=== PATIENT | female | born 1955 | race Caucasian/White ===

== ENCOUNTER 2025-01-13 11:42 | Inpatient (IN) | payer MEDICARE ==
[~2025-01-13] VITALS: Ht 157.5 cm; Wt 100.7 kg
--- NOTE | 2025-01-13 14:30 | NUR ---
pt transfer from [facility] via ambulance left bundle branch block acute pulmonary edema heart block pt awake alert orient x4 denies chest pain room orientation completed
--- NOTE | 2025-01-13 14:48 | NUR ---
in report nurse from [facility] stated pt positive for covid medical recrd shows negative pt re-tested for covid on admission
[2025-01-13] MEDS ORDERED: FERR240T10 PO (15:14)
[2025-01-13] MEDS ORDERED: ZOLPidem TARTrate 5 MG TAB PO PRN (15:30)
[2025-01-13] MEDS ORDERED: DiphenhydrAMINE HCL 50 MG/ML VIAL IV PRN (15:30)
[2025-01-13] MEDS ORDERED: guaiFENesin-DM 200/20MG 10ML PO PRN (15:30)
[2025-01-13] MEDS ORDERED: PoTASSium chloRIDE 20MEQ ER 20 MEQ ERTAB PO PRN ×2 (15:30)
[2025-01-13] MEDS ORDERED: LACTULOSE 20 GM/30 ML UDCUP PO PRN (15:30)
[2025-01-13] MEDS ORDERED: hydrALAZine 20MG/ML VIAL IV PRN (15:30)
[2025-01-13] MEDS ORDERED: GLUCAGON 1MG KIT 1 MG ML IM PRN (15:30)
[2025-01-13] MEDS ORDERED: NITROGLYCERIN 0.4 MG SL TAB SL PRN (15:30)
[2025-01-13] MEDS ORDERED: FAMOTIDINE 20MG VIAL IV PRN (15:30)
[2025-01-13] MEDS ORDERED: MAGNESIUM 2GM PREMIX 50ML 50 ML IV PRN (15:30)
[2025-01-13] MEDS ORDERED: PoTASSium chloRIDE 20MEQ/100ML 100 ML IV PRN (15:30)
[2025-01-13] MEDS ORDERED: ketOROlac 15MG/ML VIAL (15MG/ML) IV PRN (15:30)
[2025-01-13] MEDS ORDERED: PoTASSium chloRIDE 10MEQ/100ML 100 ML IV PRN (15:30)
[2025-01-13] MEDS ORDERED: oxyCODONE/aceTAMIN 5/325MG TAB PO PRN (15:30)
[2025-01-13] MEDS ORDERED: DEXTROSE 50%-WATER 50 ML DISP.SYRIN IV PRN (15:30)
[2025-01-13] MEDS ORDERED: morPHINE 2 MG SYG IVP PRN (15:30)
[2025-01-13] MEDS ORDERED: PoTASSium chl 10% ELIXIR 20MEQ 20 MEQ/15 ML UDCUP PO PRN ×2 (15:30)
[2025-01-13] MEDS ORDERED: acetaMINOPHEN 325 MG TAB PO PRN ×3 (15:30)
[2025-01-13] MEDS ORDERED: MAG/ALUM/SIMETH 30 ML UDCUP PO PRN (15:30)
[2025-01-13] MEDS ORDERED: ondanSETRON 4MG INJ IV PRN (15:30)
--- NOTE | 2025-01-13 15:31 | HP ---
[facility] HISTORY AND PHYSICAL Date of Service: Jan 13, 2025 Time of Service: 15:20 PCP:Dr Becca Live from [facility] in [facility] Admitting: Dr Hinton Allergies: No Allergy Information Available, No Known Drug Allergies HISTORY OF PRESENT ILLNESS: [Patient is 69 years old female, winter [place] from [facility] with a past medical history of iron-deficiency anemia, cardiac murmur (aortic stenosis), obesity,, who came to emergency department [facility], with a complaint of dyspnea on exertion for the past 3 to 4 weeks and paroxysmal nocturnal dyspnea as well as new onset CHF by chest x-ray in the emergency department. She was found to be in a third-degree AV block in emergency department and Cardiology was consulted. She reports have block dyspnea on exertion without associated chest pain or dizziness. Patient had two episodes of PND in the last week waking up 3 to 4 times with the dyspnea. Patient denies any chest discomfort, syncope, near syncope or dizziness. Patient denies any history of bradycardia. Patient stated that at home she takes only iron for her iron-deficiency anemia. Patient was transferred per Dr. Mirza from [facility] to [facility] for further evaluation of pacemaker with , and to consult for further evaluation of the complete heart block and CHF. At this moment we do not have any labs or results. Patient will be admitted under hospitalist care for further evaluation. We will continue to monitor patient. ] REVIEW OF SYSTEMS CONSTITUTIONAL: Denies fevers, chills, or night sweats. No unintentional weight loss reported. NEUROLOGICAL: Denies headache, amaurosis fugax, motor weakness, sensory deficit, vertigo/spinning sensation, gait abnormalities, or tremors. ENT: No hearing loss, otalgia, otorrhea, rhinitis, rhinorrhea, hoarseness, or sore throat. CARDIOVASCULAR: Denies any exertional angina, dyspnea on exertion, orthopnea, paroxysmal nocturnal dyspnea, palpitations, life-threatening arrhythmias, claudication. PULMONARY: Denies any , cough, phlegm/sputum, hemoptysis, pleuritic chest pain. Shortness of breaths on exertion SLEEP: Denies morning headaches, daytime somnolence or napping. Denies difficul ty falling asleep, staying asleep, waking from sleep. Denies knowledge of snoring. GASTROINTESTINAL: Denies any type of dysphagia to either liquids or solids. Denies nausea, vomiting, pyrosis, early satiety, abdominal pain, diarrhea, constipation, or changes in stool consistency or caliber. Denies coffee-ground emesis, hematemesis, hematochezia, or melanotic stools. GENITOURINARY: Denies frequency, urgency, nocturia, hematuria or incontinence (Storage/Irritative symptoms.) Low urinary stream, straining to void, urinary intermittency or hesitancy, splitting of the voiding stream, terminal dribbling. ENDOCRINOLOGIC: Denies polyuria, polydipsia, polyphagia or heat/cold intole rances. HEMATOLOGIC: Denies thrombophilia/previous clots, or coagulopathy/bleeding disorders. ONCOLOGIC: Denies personal history of malignancy. DERMATOLOGIC: Denies rashes or pruritus. PSYCHIATRIC: Denies any suicidal or homicidal ideation. Denies hallucinations. PAST MEDICAL HISTORY: [ Iron-deficiency anemia, cardiac murmur, obesity, colonic polyps, possible sleep apnea] PAST SURGICAL HISTORY: [ Cholecystectomy, right eye blepharoplasty, face-lift 2022, right ovaria les ion exertionn excision, s/p polypectomy three years ago] PAST SOCIAL HISTORY: [ Patient denies smoking and reports rare social alcohol consumption only. Patient denies any drug illicit ] FAMILY HISTORY: [ Patient is winter [place] from [place] lives with family. Patient is independent ] Coded Allergies: No Known Allergies (Unverified Allergy, Unknown, 01/13/25) PHYSICAL EXAM GENERAL APPEARANCE: The patient is awake, alert, and oriented, in no acute cardiopulmonary distress. NEUROLOGICAL: Cranial nerves II-XII grossly intact. Motor is 5/5 in bilateral upper and lower extremities proximal to distal. No sensory deficits. HEENT: Face is symmetric. Pupils are equal and reactive. Extraocular movements are intact. NECK: Supple. No JVD. No thyromegaly. No submental, submandibular, pre- /postauricular, occipital or supraclavicular lymphadenopathy. CHEST: Normal chest expansion. No Telemetry. LUNGS: Absence of any rales, rhonchi or any wheezing. CARDIOVASCULAR: Regular. S1 and S2 normal. No appreciable rubs, murmurs or gallops. ABDOMEN: Soft, nontender, and nondistended. There is no rebound, voluntary g uarding, or rigidity. : Deferred. No Lynch. EXTREMITIES: Non-edematous and not cyanotic. No clubbing. Good capillary refill. SKIN: No skin breakdown. LABS: Current Medications Medications (Trade) Dose Ordered Sig/Dk Route PRN Reason Start Time Stop Time Status Last Admin Dose Admin Dextrose (D50w) 50 ml AD PRN IV HYPOGLYCEMIA PROTOCOL 01/13/25 15:30 02/12/25 15:29 Glucagon (Glucagon 1mg Kit) 1 mg AD PRN IM HYPOGLYCEMIA PROTOCOL 01/13/25 15:30 02/12/25 15:29 Insulin Human Regular (humuLIN R 100 UNIT/ML 3ML) INSULIN SLIDING SCAL... ACHS SQ 01/13/25 16:30 02/12/25 16:29 Magnesium Sulfate 50 ml @ 0 mls/hr PROTOCOL PRN IV other 01/13/25 15:30 02/12/25 15:29 Potassium Chloride 100 ml @ 100 mls/hr AD PRN IV POTASSIUM PROTOCOL 01/13/25 15:30 02/12/25 15:29 Potassium Chloride 100 ml @ 100 mls/hr AD PRN IV POTASSIUM PROTOCOL 01/13/25 15:30 02/12/25 15:29 Potassium Chloride (K-Dur/Klor-Con 20meq) 10 meq AD PRN PO POTASSIUM PROTOCOL 01/13/25 15:30 02/12/25 15:29 Potassium Chloride (K-Dur/Klor-Con 20meq) 20 meq AD PRN PO POTASSIUM PROTOCOL 01/13/25 15:30 02/12/25 15:29 Potassium Chloride (KCl 10% Elixir 20meq/15ml) 10 meq AD PRN PO POTASSIUM PROTOCOL 01/13/25 15:30 02/12/25 15:29 Potassium Chloride (KCl 10% Elixir 20meq/15ml) 20 meq AD PRN PO POTASSIUM PROTOCOL 01/13/25 15:30 02/12/25 15:29 DIAGNOSTICS / RADIOLOGY: [ ] ASSESSMENT: [ Complete heart block POA New onset CHF exacerbation POA Systolic and diastolic CHF POA Left bundle branch block POA Acute pulmonary edema POA Aortic stenosis POA Cardiac murmur POA Dyspnea on exertion and paroxysmal nocturnal dyspnea POA Symptomatic bradycardia needing pacemaker POA Obesity Iron-deficiency anemia Undiagnosed obstructive sleep apnea POA History of colonic polyps s/p polypectomy three years ago Right eye blepharoplasty s/p cholecystectomy History of face lift 2022 History of right ovarian lesion Rare social alcohol consumption POA ] PLAN: [ Admit to: PCCU Consults: Estate Agent, Antibiotics: None Tests: 2D echo, chest x-ray NEURO: Minimize central acting medications as possible. Fall Precautions. Well lighted room through the day and minimize interruptions through the night to prevent acute delirium. PULMONARY: Chest x-ray pending Supplemental 02 as needed BiPAP as necessary, for respiratory distress Titrate Fio2 to keep Spo2 > or = 90% DuoNebs and CPT as needed IS hourly while awake for pulmonary hygiene Out of bed to chair as tolerated VAP Bundle Maintain aspiration precautions at all times CARDIOVASCULAR: 2D echo pending Follow hemodynamics. Vital signs per facility protocol GI & NUTRITION: Continue nutritional support Aspirations precautions Prokinetic agents and laxatives as needed KIDNEYS & ELECTROLYTES: Strict monitoring of intake and output Daily weights Avoid nephrotoxic agents Monitor electrolytes and replace as needed Goal urine output of 30mL/hr or 0.5mL/kg/hr Medications to be dosed according to renal function. Avoid contrast if possible ENDOCRINE: Maintain blood glucose between 100-180 at all times. Insulin sliding scale for blood glucose management Hypoglycemia and hyperglycemia protocol in place INFECTIOUS DISEASE: Trend temperature, WBC and procalcitonin level Follow cultures, deescalate antibiotics as soon as possible. Panculture if new onset fever HEMATOLOGY & COAGULATION: Monitor H&H. Keep Hgb > 7 Transfuse 1 unit of PRBC for Hgb < 7 Transfuse 1 pack of platelets of platelets < 20, 000 Watch for any signs and symptoms of bleeding SKIN: Pressure ulcer prevention per facility protocol Specialty mattress as needed Treatment plan discussed with patient and family at the bedside Medications to be reconciled once obtained by patient and/or family and available to be reconciled in computer p.r.n. medication for pain nausea and vomiting Questions were answered We will continue to monitor the patient closely Code Machine Operator for disposition Rehab: PT/OT GI: PPI DVT: SCD's Code Status: Full Resuscitation Disposition: TBD Prognosis: Guarded ] ADVANCED CARE PLANNING 1. Which of the following were discussed? Hospice Care - Yes / No Therapeutic options - Yes / No Advance Directives - Yes / No Other discussions - 2. Discussed with who? Patient 3. Voluntary nature of this service was explained to the patient? Yes / No 4. Amount of time spent - ___ more than 35 minutes ____ 5. Reviewed by Physician? (if this service was performed by NPP) Yes / No Patient seen and examined by me. Agree with note by LEAN SPECIALIST SEE ADDITIONAL ORDERS PER CHART DISCUSSED WITH NURSING STAFF ELVIA BRADSHAW APRN Jan 13, 2025 15:31
[2025-01-13 15:34] LABS: BASOPHILS # (AUTO) 0.02 K/uL (0.00-0.20); BASOPHILS % (AUTO) 0.3 % (0.0-5.0); EOSINOPHILS # (AUTO) 0.18 K/uL (0.00-0.70); EOSINOPHILS % (AUTO) 3.1 % (0.0-8.0); HEMATOCRIT 38.2 % (36-48); IMMATURE GRANULOCYTE ABSOLUTE 0.02 K/uL (0-1); LYMPHOCYTES # (AUTO) 0.9 K/uL (1.0-4.8); LYMPHOCYTES % (AUTO) 16.2 % (21.0-51.0); MEAN CORPUSCULAR HEMOGLOBIN 27.1 pg (27.0-33.0); MEAN CORPUSCULAR HGB CONC 30.9 g/dL (32.0-36.0); MEAN CORPUSCULAR VOLUME 87.6 fL (79-99); MONOCYTES # (AUTO) 0.6 K/uL (0.1-1.0); MONOCYTES % (AUTO) 10.1 % (3.0-13.0); NEUTROPHILS # (AUTO) 4.1 K/uL (1.8-7.7); PLATELET COUNT (AUTO) 211 K/uL (130-400); RED BLOOD CELL COUNT(AUTO) 4.36 MIL/uL (4.00-5.50); WHITE BLOOD COUNT (AUTO) 5.8 K/uL (4.8-10.8)
[2025-01-13 15:39] VITALS: O2SAT 96
[2025-01-13 15:46] LABS: SARS-CoV-2, RNA, NAAT POSITIVE SARS CoV-2 (NEGATIVE)
[2025-01-13 15:52] LABS: ALBUMIN 3.2 g/dL (3.5-5.0); BILIRUBIN,TOTAL 1.4 mg/dL (0.2-1.0); CREATININE 0.8 mg/dL (0.5-1.0); POTASSIUM 3.7 mmol/L (3.5-5.1); TOTAL PROTEIN, SERUM 6.3 g/dL (6.0-8.3)
[2025-01-13 15:55] LABS: B-TYPE NATRIURETIC PEPTIDE 921 pg/mL (0-100)
[2025-01-13 16:30] VITALS: BP 148/76; PULSE 52; RESP 18; TEMP 98.2
[2025-01-13] MEDS: INSULIN humuLIN R 100 UNIT/ML 3ML SQ SCH (16:30)
[2025-01-13] MEDS: DOXYCYCLINE 100MG+NS 250ML 250 ML IV SCH (19:32)
[2025-01-13 19:52] VITALS: BP 165/73; PULSE 53; RESP 18; TEMP 98.4
[2025-01-13 20:00] VITALS: O2SAT 94
[2025-01-13] MEDS: FAMOTIDINE 20MG VIAL IV SCH (20:16)
[2025-01-13 22:10] LABS: APPEARANCE,URINE CLEAR (CLEAR); BILIRUBIN,URINE NEGATIVE (NEGATIVE); COLOR,URINE YELLOW (YELLOW); GLUCOSE, URINE (UA) NEGATIVE (NEGATIVE); KETONES,URINE 20 mg/dL (NEGATIVE); LEUKOCYTE ESTERASE ,URINE 75 Leu/uL (NEGATIVE); MUCUS,URINE RARE LPF (None Seen); NITRATE,URINE NEGATIVE (NEGATIVE); OCCULT BLOOD,URINE NEGATIVE (NEGATIVE); PH,URINE 7.5 (5.0-8.0); PROTEIN,URINE 10 mg/dL (NEGATIVE); UROBILINOGEN,URINE 0.2 mg/dL (0.2-1.0)
[2025-01-13 23:50] VITALS: BP_SYST 104; BP_SYST 155; BP_DIAS 71; BP_DIAS 79; PULSE 75; PULSE 91; RESP 18; TEMP 98.4
[2025-01-14] VITALS (13 sets, daily range): BP systolic 140–161; BP diastolic 56–96; PULSE 43–88; RESP 18–21; TEMP 97.7–98.6; O2SAT 92–96
[2025-01-14 04:21] LABS: BASOPHILS # (AUTO) 0.02 K/uL (0.00-0.20); BASOPHILS % (AUTO) 0.4 % (0.0-5.0); EOSINOPHILS # (AUTO) 0.17 K/uL (0.00-0.70); HEMATOCRIT 38.3 % (36-48); IMMATURE GRANULOCYTE ABSOLUTE 0.02 K/uL (0-1); LYMPHOCYTES # (AUTO) 0.8 K/uL (1.0-4.8); LYMPHOCYTES % (AUTO) 14.4 % (21.0-51.0); MEAN CORPUSCULAR HEMOGLOBIN 26.8 pg (27.0-33.0); MEAN CORPUSCULAR HGB CONC 30.5 g/dL (32.0-36.0); MEAN CORPUSCULAR VOLUME 87.6 fL (79-99); MONOCYTES # (AUTO) 0.6 K/uL (0.1-1.0); NEUTROPHILS % (AUTO) 70.8 % (40.0-77.0); PLATELET COUNT (AUTO) 199 K/uL (130-400); RED BLOOD CELL COUNT(AUTO) 4.37 MIL/uL (4.00-5.50); WHITE BLOOD COUNT (AUTO) 5.6 K/uL (4.8-10.8)
[2025-01-14 04:37] LABS: INR 1.07 (0.85-1.15); PROTHROMBIN TIME 11.3 SEC (9.6-11.6)
[2025-01-14 04:39] LABS: PARTIAL THROMBOPLASTIN TIME 28.5 SEC (26.3-35.5)
[2025-01-14 04:51] LABS: ALANINE AMINOTRANSFERASE 21 U/L (12-78); AMMONIA < 10 umol/L (11-32); ASPARTATE AMINOTRANSFERASE 22 U/L (10-37); BILIRUBIN,DIRECT 0.3 mg/dL (0.0-0.3); BILIRUBIN,TOTAL 1.3 mg/dL (0.2-1.0); CARBON DIOXIDE 32 mmol/L (21-32); CHLORIDE 103 mmol/L (101-111); CREATINE KINASE, TOTAL 60 U/L (21-232); CREATININE 0.8 mg/dL (0.5-1.0); GLOMERULAR FILTR. RATE CALC 79 mL/min (>90); GLUCOSE,RANDOM 103 mg/dL (70-105); POTASSIUM 4.5 mmol/L (3.5-5.1); SODIUM SERUM 136 mmol/L (136-145); TOTAL PROTEIN, SERUM 6.1 g/dL (6.0-8.3); UREA NITROGEN, BLOOD 9 mg/dL (7-18)
[2025-01-14] MEDS ORDERED: PoTASSium chloRIDE 10MEQ SR 10 MEQ/TAB TAB.SR.24H PO PRN (07:30)
[2025-01-14] MEDS: CEFTRIAXONE 2GM VIAL IVPB SCH (09:00)
--- NOTE | 2025-01-14 09:55 | NUR ---
RAD V/Q @ 0954HRS VERONICA REBOLLEDO WAS NOTIFIED; V/Q SCAN CAN NOT BE PERFORMED DUE TO PT'S COVID (+) STATUS. DG
--- NOTE | 2025-01-14 10:38 | PN ---
[facility] CARDIOLOGY PROGRESS NOTE Date Patient Seen: Jan 14, 2025 Time of Visit: 10:36 Problem List: [facility] COV19 ELEVATED TROPONIN Interval History: Seen in follow up after transfer [place] [facility] Consultation by Dr Sandro Mirza dated 01/13/25. Patient's BP is 150/56, HR 46bpm in [facility], O2 saturations 95% on room air. Laboratory: [ ] Hematology Labs: Test 01/14/25 03:57 01/13/25 15:26 Range/Units White Blood Count 5.6 4.8-10.8 K/uL Red Blood Count 4.37 4.00-5.50 MIL/uL Hemoglobin 11.7 L 12.0-16.0 g/dL Hematocrit 38.3 36-48 % Mean Corpuscular Volume 87.6 79-99 fL Mean Corpuscular Hemoglobin 26.8 L 27.0-33.0 pg Mean Corpuscular Hemoglobin Concent 30.5 L 32.0-36.0 g/dL Red Cell Distribution Width 22.0 H 11.0-15.5 % Platelet Count 199 130-400 K/uL Mean Platelet Volume 9.4 7.5-10.5 fL Immature Granulocyte % (Auto) 0.4 0-1 % Neutrophils (%) (Auto) 70.8 40.0-77.0 % Lymphocytes (%) (Auto) 14.4 L 21.0-51.0 % Monocytes (%) (Auto) 11.0 3.0-13.0 % Eosinophils (%) (Auto) 3.0 0.0-8.0 % Basophils (%) (Auto) 0.4 0.0-5.0 % Neutrophils # (Auto) 4.0 1.8-7.7 K/uL Lymphocytes # (Auto) 0.8 L 1.0-4.8 K/uL Monocytes # (Auto) 0.6 0.1-1.0 K/uL Eosinophils # (Auto) 0.17 0.00-0.70 K/uL Basophils # (Auto) 0.02 0.00-0.20 K/uL Absolute Immature Granulocyte (auto 0.02 0-1 K/uL Nucleated Red Blood Cells 0.0 0.0-0.19 % Red Blood Cell Morphology See comments Chemistry Labs: Test 01/14/25 03:57 01/13/25 20:30 01/13/25 15:26 Range/Units Sodium Level 136 136-145 mmol/L Potassium Level 4.5 3.5-5.1 mmol/L Chloride Level 103 101-111 mmol/L Carbon Dioxide Level 32 21-32 mmol/L Blood Urea Nitrogen 9 7-18 mg/dL Creatinine 0.8 0.5-1.0 mg/dL Glomerular Filtration Rate Calc 79 >90 mL/min Random Glucose 103 70-105 mg/dL Lactic Acid Level 1.4 0.8-2.5 mmol/L Total Calcium 8.7 8.5-10.1 mg/dL Magnesium Level 2.10 1.80-2.40 mg/dL Total Bilirubin 1.3 H 0.2-1.0 mg/dL Direct Bilirubin 0.3 0.0-0.3 mg/dL Aspartate Amino Transf (AST/SGOT) 22 10-37 U/L Alanine Aminotransferase (ALT/SGPT) 21 12-78 U/L Alkaline Phosphatase 68 50-136 U/L Ammonia < 10 L 11-32 umol/L Total Creatine Kinase 60 21-232 U/L Troponin I High Sensitivity 93.5 *H 4-50 ng/L B-Type Natriuretic Peptide 760 H 0-100 pg/mL Total Protein 6.1 6.0-8.3 g/dL Albumin 3.0 L 3.5-5.0 g/dL Procalcitonin < 0.05 L 0.05-0.5 ng/mL Whole Blood Glucose 83 70-110 MG/DL Hemoglobin A1c 5.0 4.0-6.0 % Estimated Average Glucose (eAG) 97 70-126 mg/dL Coagulation Labs: Test 01/14/25 03:57 01/13/25 15:26 Range/Units Prothrombin Time 11.3 9.6-11.6 SEC Prothromb Time International Ratio 1.07 0.85-1.15 Activated Partial Thromboplast Time 28.5 26.3-35.5 SEC D-Dimer Quantitative (PE/DVT) 897 *H 0-500 ng/mL Impression and Plan: Complete heart block COV19 positive Elevated troponin Cardiac murmur Hypertension Transferred due to [facility] with need for PPM. Patient positive for COV19, underlying aortic stenosis murmur pending e chocardiogram to assess severity prior to PPM ANGELLA DOMINIQUE DO Jan 14, 2025 10:38
--- NOTE | 2025-01-14 11:00 | NUR ---
Order received for PT eval. Spoke to nurse, Yen, who stated patient is + Covid. Laboratory results noted high D dimer and troponin levels pending VQ scan ?cardiac issues. PT team to follow
--- NOTE | 2025-01-14 11:42 | PN ---
[facility] PROGRESS NOTE Date of Service: Jan 14, 2025 Time of Service: 11:[address] Guajardo SUBJECTIVE: [ 01/13 Patient is 69 years old female, [place] from [facility] with a past medical history of iron-deficiency anemia, cardiac murmur (aortic stenosis), obesity,, who came to emergency department [place], with a complaint of dyspnea on exertion for the past 3 to 4 weeks and paroxysmal nocturnal dyspnea as well as new onset CHF by chest x-ray in the emergency department. She was found to be in a third-degree AV block in emergency department and Cardiology was consulted. She reports have block dyspnea on exertion without associated chest pain or dizziness. Patient had two episodes of PND in the last week waking up 3 to 4 times with the dyspnea. Patient denies any chest discomfort, syncope, near syncope or dizziness. Patient denies any history of bradycardia. Patient stated that at home she takes only iron for her iron-deficiency anemia. Patient was transferred per Dr. Mirza from [facility] to [facility] for further evaluation of pacemaker with , and to consult for further evaluation of the complete heart block and CHF. At this moment we do not have any labs or results. 01/14 patient was seen by nurse practitioner and physician during rounding in room 201 comfortably lying in the bed. Patient stated that at this moment she has been kept NPO since she might be having a pacemaker placement today by . HEAD USHER had a chance to talk in person with string top sealer, and there is a big possibility that patient will be undergoing a pacemaker placement today in the afternoon. Patient was tested positive for COVID and was placed on doxycycline IV. 2D echo was done pending final reading. V/Q scan unable to be performed due to patient being COVID positive. Chest x-ray performed no results yet. Patient was also evaluated by the deicer inspector electric no new orders at this moment. We will continue to monitor patient in the meantime. A.m. labs] REVIEW OF SYSTEMS CONSTITUTIONAL: Denies fevers, chills, or night sweats. No unintentional weight loss reported. NEUROLOGICAL: Denies headache, amaurosis fugax, motor weakness, sensory deficit, vertigo/spinning sensation, gait abnormalities, or tremors. ENT: No hearing loss, otalgia, otorrhea, rhinitis, rhinorrhea, hoarseness, or sore throat. CARDIOVASCULAR: Denies any exertional angina, dyspnea on exertion, orthopnea, paroxysmal nocturnal dyspnea, palpitations, life-threatening arrhythmias, claudication. PULMONARY: Denies any , cough, phlegm/sputum, hemoptysis, pleuritic chest pain. Shortness of breaths on exertion SLEEP: Denies morning headaches, daytime somnolence or napping. Denies difficulty falling asleep, staying asleep, waking from sleep. Denies knowledge of snoring. GASTROINTESTINAL: Denies any type of dysphagia to either liquids or solids. Denies nausea, vomiting, pyrosis, early satiety, abdominal pain, diarrhea, constipation, or changes in stool consistency or caliber. Denies coffee-ground emesis, hematemesis, hematochezia, or melanotic stools. GENITOURINARY: Denies frequency, urgency, nocturia, hematuria or incontinence (Storage/Irritative symptoms.) Low urinary stream, straining to void, urinary intermittency or hesitancy, splitting of the voiding stream, terminal dribbling. ENDOCRINOLOGIC: Denies polyuria, polydipsia, polyphagia or heat/cold intolerances. HEMATOLOGIC: Denies thrombophilia/previous clots, or coagulopathy/bleeding disorders. ONCOLOGIC: Denies personal history of malignancy. DERMATOLOGIC: Denies rashes or pruritus. PSYCHIATRIC: Denies any suicidal or homicidal ideation. Denies hallucinations. PHYSICAL EXAM GENERAL APPEARANCE: The patient is awake, alert, and oriented, in no acute cardiopulmonary distress. NEUROLOGICAL: Cranial nerves II-XII grossly intact. Motor is 5/5 in bilateral upper and lower extremities proximal to distal. No sensory deficits. HEENT: Face is symmetric. Pupils are equal and reactive. Extraocular movements are intact. NECK: Supple. No JVD. No thyromegaly. No submental, submandibular, pre- /postauricular, occipital or supraclavicular lymphadenopathy. CHEST: Normal chest expansion. No Telemetry. LUNGS: Absence of any rales, rhonchi or any wheezing. CARDIOVASCULAR: Regular. S1 and S2 normal. No appreciable rubs, murmurs or gallops. ABDOMEN: Soft, nontender, and nondistended. There is no rebound, voluntary guarding, or rigidity. : Deferred. No Lynch. EXTREMITIES: Non-edematous and not cyanotic. No clubbing. Good capillary refill. SKIN: No skin breakdown. Vital Signs (last 8hr) Date Time Temp Pulse Resp B/P (MAP) Pulse Ox O2 Delivery O2 Flow Rate FiO2 01/14/25 08:00 96 Room Air* 0 21 01/14/25 07:43 97.7 43 20 161/67 95 Room Air 01/14/25 04:40 98.6 56 18 140/70 97 Room Air LABS: Laboratory: Test 01/14/25 03:57 01/13/25 22:00 01/13/25 20:30 01/13/25 15:26 Range/Units White Blood Count 5.6 4.8-10.8 K/uL Red Blood Count 4.37 4.00-5.50 MIL/uL Hemoglobin 11.7 L 12.0-16.0 g/dL Hematocrit 38.3 36-48 % Mean Corpuscular Volume 87.6 79-99 fL Mean Corpuscular Hemoglobin 26.8 L 27.0-33.0 pg Mean Corpuscular Hemoglobin Concent 30.5 L 32.0-36.0 g/dL Red Cell Distribution Width 22.0 H 11.0-15.5 % Platelet Count 199 130-400 K/uL Mean Platelet Volume 9.4 7.5-10.5 fL Immature Granulocyte % (Auto) 0.4 0-1 % Neutrophils (%) (Auto) 70.8 40.0-77.0 % Lymphocytes (%) (Auto) 14.4 L 21.0-51.0 % Monocytes (%) (Auto) 11.0 3.0-13.0 % Eosinophils (%) (Auto) 3.0 0.0-8.0 % Basophils (%) (Auto) 0.4 0.0-5.0 % Neutrophils # (Auto) 4.0 1.8-7.7 K/uL Lymphocytes # (Auto) 0.8 L 1.0-4.8 K/uL Monocytes # (Auto) 0.6 0.1-1.0 K/uL Eosinophils # (Auto) 0.17 0.00-0.70 K/uL Basophils # (Auto) 0.02 0.00-0.20 K/uL Absolute Immature Granulocyte (auto 0.02 0-1 K/uL Nucleated Red Blood Cells 0.0 0.0-0.19 % Prothrombin Time 11.3 9.6-11.6 SEC Prothromb Time International Ratio 1.07 0.85-1.15 Activated Partial Thromboplast Time 28.5 26.3-35.5 SEC Sodium Level 136 136-145 mmol/L Potassium Level 4.5 3.5-5.1 mmol/L Chloride Level 103 101-111 mmol/L Carbon Dioxide Level 32 21-32 mmol/L Blood Urea Nitrogen 9 7-18 mg/dL Creatinine 0.8 0.5-1.0 mg/dL Glomerular Filtration Rate Calc 79 >90 mL/min Random Glucose 103 70-105 mg/dL Lactic Acid Level 1.4 0.8-2.5 mmol/L Total Calcium 8.7 8.5-10.1 mg/dL Magnesium Level 2.10 1.80-2.40 mg/dL Total Bilirubin 1.3 H 0.2-1.0 mg/dL Direct Bilirubin 0.3 0.0-0.3 mg/dL Aspartate Amino Transf (AST/SGOT) 22 10-37 U/L Alanine Aminotransferase (ALT/SGPT) 21 12-78 U/L Alkaline Phosphatase 68 50-136 U/L Ammonia < 10 L 11-32 umol/L Total Creatine Kinase 60 21-232 U/L Troponin I High Sensitivity 93.5 *H 4-50 ng/L B-Type Natriuretic Peptide 760 H 0-100 pg/mL Total Protein 6.1 6.0-8.3 g/dL Albumin 3.0 L 3.5-5.0 g/dL Procalcitonin < 0.05 L 0.05-0.5 ng/mL Urine Color YELLOW YELLOW Urine Appearance CLEAR CLEAR Urine pH 7.5 5.0-8.0 Urine Specific [place] 1.018 1.001-1.031 Urine Protein 10 H NEGATIVE mg/dL Urine Glucose (UA) NEGATIVE NEGATIVE mg/dL Urine Ketones 20 H NEGATIVE mg/dL Urine Occult Blood NEGATIVE NEGATIVE Urine Nitrate NEGATIVE NEGATIVE Urine Bilirubin NEGATIVE NEGATIVE mg/dL Urine Urobilinogen 0.2 0.2-1.0 mg/dL Urine Leukocyte Esterase 75 H NEGATIVE Ida/uL Urine RBC 2-5 H 0-1 /HPF Urine WBC 2-5 H 0-1 /HPF Urine Bacteria None None Seen /HPF Whole Blood Glucose 83 70-110 MG/DL Red Blood Cell Morphology See comments D-Dimer Quantitative (PE/DVT) 897 *H 0-500 ng/mL Hemoglobin A1c 5.0 4.0-6.0 % Estimated Average Glucose (eAG) 97 70-126 mg/dL Test 01/13/25 14:30 Range/Units SARS-CoV-2, RNA, NAAT POSITIVE SARS CoV-2 *A NEGATIVE Current Medications Medications (Trade) Dose Ordered Sig/Dk Route PRN Reason Start Time Stop Time Status Last Admin Dose Admin Acetaminophen (TYLenol 325MG TAB) 650 mg Q4H PRN PO MILD PAIN (1-3) 01/13/25 15:30 02/12/25 15:29 Acetaminophen (TYLenol 325MG TAB) 650 mg Q6H PRN PO MILD PAIN (1-3) 01/13/25 15:30 01/14/25 07:03 DC Acetaminophen (TYLenol 325MG TAB) 650 mg Q6H PRN PO TEMPERATURE GREATER THAN 101.5 01/13/25 15:30 02/12/25 15:29 Al Hydroxide/Mg Hydroxide (MAALox PLUS 30ML) 30 ml Q6H PRN PO INDIGESTION 01/13/25 15:30 02/12/25 15:29 Ceftriaxone Sodium (Rocephin 2gm Inj) 2 gm Q24H IVPB 01/14/25 09:00 01/24/25 08:59 Dextrose (D50w) 50 ml AD PRN IV HYPOGLYCEMIA PROTOCOL 01/13/25 15:30 02/12/25 15:29 Diphenhydramine HCl (BENAdryl INJ) 25 mg Q6H PRN IV SEVERE ITCHING/RASH 01/13/25 15:30 02/12/25 15:29 Doxycycline Hyclate 250 ml @ 125 mls/hr Q12H IV 01/13/25 16:30 01/23/25 16:29 01/14/25 03:35 125 MLS/HR Famotidine (Pepcid 20mg Vial) 20 mg BID IV 01/13/25 21:00 02/12/25 20:59 01/13/25 20:16 20 MG Famotidine (Pepcid 20mg Vial) 20 mg BID PRN IV NAUSEA/VOMITING 01/13/25 15:30 01/14/25 07:03 DC Glucagon (Glucagon 1mg Kit) 1 mg AD PRN IM HYPOGLYCEMIA PROTOCOL 01/13/25 15:30 02/12/25 15:29 Guaifenesin/ Dextromethorphan (RobiTUSSin DM 200/20MG 10ML) 10 ml Q4H PRN PO COUGH 01/13/25 15:30 02/12/25 15:29 Hydralazine HCl (APRESOLine 20MG INJ) 10 mg Q6H PRN IV For:SBP above 160;DBP above 90 01/13/25 15:30 02/12/25 15:29 Insulin Human Regular (humuLIN R 100 UNIT/ML 3ML) INSULIN SLIDING SCAL... ACHS SQ 01/13/25 16:30 02/12/25 16:29 Ketorolac Tromethamine (toRADol) 15 mg Q8H PRN IV MODERATE PAIN (4-6) 01/13/25 15:30 01/18/25 15:29 Lactulose (Constulose 20gm/ 30ml Udcup) 20 gm BID PRN PO CONSTIPATION 01/13/25 15:30 02/12/25 15:29 Magnesium Sulfate 50 ml @ 0 mls/hr PROTOCOL PRN IV other 01/13/25 15:30 02/12/25 15:29 Morphine Sulfate (morPHINE 2MG SYG) 1 mg Q4H PRN IVP SEVERE PAIN (7-10) 01/13/25 15:30 01/20/25 15:29 Nitroglycerin (Nitrostat) 0.4 mg PROTOCOL PRN SL CHEST PAIN 01/13/25 15:30 02/12/25 15:29 Ondansetron HCl (zoFRAN 4MG INJ) 4 mg Q6H PRN IV NAUSEA/VOMITING 01/13/25 15:30 02/12/25 15:29 Oxycodone/ Acetaminophen (perCOCET) 1 tab Q6H PRN PO SEVERE PAIN (7-10) 01/13/25 15:30 01/13/25 15:23 DC Potassium Chloride 100 ml @ 100 mls/hr AD PRN IV POTASSIUM PROTOCOL 01/13/25 15:30 02/12/25 15:29 Potassium Chloride 100 ml @ 100 mls/hr AD PRN IV POTASSIUM PROTOCOL 01/13/25 15:30 02/12/25 15:29 Potassium Chloride (K-Dur 10meq Sr Tab) 10 meq AD PRN PO POTASSIUM PROTOCOL 01/14/25 07:30 02/12/25 15:29 Potassium Chloride (K-Dur/Klor-Con 20meq) 10 meq AD PRN PO POTASSIUM PROTOCOL 01/13/25 15:30 01/14/25 07:04 DC Potassium Chloride (K-Dur/Klor-Con 20meq) 20 meq AD PRN PO POTASSIUM PROTOCOL 01/13/25 15:30 02/12/25 15:29 Potassium Chloride (KCl 10% Elixir 20meq/15ml) 10 meq AD PRN PO POTASSIUM PROTOCOL 01/13/25 15:30 02/12/25 15:29 Potassium Chloride (KCl 10% Elixir 20meq/15ml) 20 meq AD PRN PO POTASSIUM PROTOCOL 01/13/25 15:30 02/12/25 15:29 Zolpidem Tartrate (AmbIEN) 5 mg HS PRN PO INSOMNIA 01/13/25 15:30 02/12/25 15:29 DIAGNOSTICS / RADIOLOGY: [ ] ASSESSMENT: [ Complete heart block POA New onset CHF exacerbation POA Systolic and diastolic CHF POA Left bundle branch block POA Acute pulmonary edema POA Aortic stenosis POA Cardiac murmur POA Dyspnea on exertion and paroxysmal nocturnal dyspnea POA Symptomatic bradycardia needing pacemaker POA COVID pneumonia positive on admission POA Obesity Iron-deficiency anemia Undiagnosed obstructive sleep apnea POA History of colonic polyps s/p polypectomy three years ago Right eye blepharoplasty s/p cholecystectomy History of face lift 2022 History of right ovarian lesion Rare social alcohol consumption POA ] PLAN: [ Admit to: PCCU Consults: Telephone Operator Receptionist, Antibiotics: Doxycycline Tests: 2D echo, chest x-ray NEURO: Minimize central acting medications as possible. Fall Precautions. Well lighted room through the day and minimize interruptions through the night to prevent acute delirium. PULMONARY: Chest x-ray pending Supplemental 02 as needed BiPAP as necessary, for respiratory distress Titrate Fio2 to keep Spo2 > or = 90% DuoNebs and CPT as needed IS hourly while awake for pulmonary hygiene Out of bed to chair as tolerated VAP Bundle Maintain aspiration precautions at all times CARDIOVASCULAR: As per conversation between HEAD USHER and , patient may undergo a pacemaker placement today 01/14/2025 in the afternoon 2D echo pending Follow hemodynamics. Vital signs per facility protocol GI & NUTRITION: Continue nutritional support Aspirations precautions Prokinetic agents and laxatives as needed KIDNEYS & ELECTROLYTES: Strict monitoring of intake and output Daily weights Avoid nephrotoxic agents Monitor electrolytes and replace as needed Goal urine output of 30mL/hr or 0.5mL/kg/hr Medications to be dosed according to renal function. Avoid contrast if possible ENDOCRINE: Maintain blood glucose between 100-180 at all times. Insulin sliding scale for blood glucose management Hypoglycemia and hyperglycemia protocol in place INFECTIOUS DISEASE: Trend temperature, WBC and procalcitonin level Follow cultures, deescalate antibiotics as soon as possible. Panculture if new onset fever HEMATOLOGY & COAGULATION: Monitor H&H. Keep Hgb > 7 Transfuse 1 unit of PRBC for Hgb < 7 Transfuse 1 pack of platelets of platelets < 20, 000 Watch for any signs and symptoms of bleeding SKIN: Pressure ulcer prevention per facility protocol Specialty mattress as needed Treatment plan discussed with patient and family at the bedside Medications to be reconciled once obtained by patient and/or family and available to be reconciled in computer p.r.n. medication for pain nausea and vomiting Questions were answered We will continue to monitor the patient closely Environmental Professional for disposition Rehab: PT/OT GI: PPI DVT: SCD's Code Status: Full Resuscitation Disposition: TBD Prognosis: Guarded ] ATTESTATION BY PHYSICIAN I have seen and examined the patient. I reviewed the documentation, medical decision making, and treatment plan as noted by the mid-level provider above. I agree with the findings and plan of care. Therese Guajardo MD, KATARZYNA B CREDIT RATING INSPECTOR Jan 14, 2025 11:42
--- NOTE | 2025-01-14 11:50 | HMCIMG ---
Exam Type: CHEST 1VW Clinical Information: Congestion Comparison: None Findings: The lungs are clear of infiltrates. The heart is enlarged. Bony and soft tissue structures of the chest wall are unremarkable. IMPRESSION: Cardiomegaly. Clear lungs.
--- NOTE | 2025-01-14 12:10 | HMCSR ---
APPROVED REPORT EXAM: Two-dimensional and M-mode echocardiogram with Doppler and color Doppler. INDICATION ICD: Complete heart block, Congestive heart failure, Pumonary edema 2D Dimensions IVSd1.2 (0.7-1.1cm)LVEF(%)37.0 (>50%)LVEF(%, simp.)59 % LVDd4.9 (3.8-5.6cm)FS(%)18 %LA ESV INDEX (BP)55.37 mL/m2 PWd1.3 (0.7-1.1cm)LA (2D)4.0 (1.6-4.0cm) IVSs1.5 cmAo Root(2D)3.1 (2.0-3.7cm) LVDs4.0 (2.5-4.0cm)LVOT diam1.9 (1.8-2.4cm) PWs1.4 cmIVC diam2.2 cm Deformation Strain Apical 4-14.0 % Apical 2-16.0 % Apical 3-15.0 % Global Strain-15.0 % M-Mode Dimensions EPSS0.8 cm LA (MM)5.0 (1.6-4.0cm) Ao Root(MM)2.9 (2.0-3.7cm) Aortic Valve AoV Vmax4.0 m/Ismael Peak GR70.0 mmHgLVOT Vmax1.2 m/s AoV VTI1.0 mAo Mean GR35.0 mmHgLVOT VTI0.34 m STEPH (VMAX)1.0 cm2AVA (VTI) 1.0 cm2 Mitral Valve MV E Yptt696.2 cm/sDECEL Ymfk585 ms MV A Puvy211.8 cm/sP 1/2 T59 ms E/A ratio1.6MVA (PHT)3.8 cm2 TDI E/E' Fmwbod10.0E/E' Nitxerl18.0 Medial E' Peak V8.00 cm/sLateral E' Peak V7.00 cm/s Pulmonary Valve PV Vmax0.9 m/s Tricuspid Valve TR Vmax3.4 m/sRAP (EST) 8 clVsLTFM33.0 mmHg TR Peak GR45.0 mmHg Left Ventricle The left ventricle is normal size. GLS -15.0%. There is normal left ventricular wall thickness. The L VEF is 55-60%. Stage II diastolic dysfunction. Right Ventricle The right ventricle is mildly dilated. The right ventricular systolic function is normal. Atria The left atrium is severely dilated. The right atrium is severely dilated. Aortic Valve Aortic valve is trileaflet, calcified with restricted opening. Trace of aortic regurgitation is prese nt. There is moderate aortic valvular stenosis. Pk gradient of 70mmg. and mean gradient of 35mmHg. Mitral Valve The mitral valve is mildly thickened. There is mitral annular calcification, predominently posteriorl y. There is mild mitral valve regurgitation noted. There is no mitral valve stenosis. Tricuspid Valve The tricuspid valve is normal in structure. There is trace of tricuspid valve regurgitation noted. Pulmonic Valve The pulmonary valve is normal in structure. There is trace of pulmonic valvular regurgitation. Great Vessels The aortic root is normal in size. IVC is dilated and collapses >50% with inspiration. Pericardium There is no pericardial effusion. Other Information Quality : AdequateRhythm : NSR Conclusion The LVEF is 55-60%. Stage II diastolic dysfunction. The left atrium is severely dilated. Aortic valve is trileaflet, calcified with restricted opening. Moderate aortic stenosis, Vpk 4.0m/s, pk/mn gradients of 70/35 mmHg. STEPH by planimetry is 1.4 cm2. There is mitral annular calcification, predominently posteriorly. There is mild mitral valve regurgitation noted.
[2025-01-14] MEDS ORDERED: BUPIvacaine/PF 0.25% 30ML VIAL IJ ONE (13:06)
[2025-01-14] MEDS ORDERED: LIDOCAINE HCL 1% MDV 50ML VIAL ONE (13:06)
[2025-01-14] MEDS ORDERED: VANCOMYCIN 1G/250ML KIT 500 ML IV ONE (13:06)
[2025-01-14] MEDS ORDERED: IOHEXOL-350 50ML VIAL IV ONE (13:06)
--- NOTE | 2025-01-14 13:43 | NUR ---
DCP COVID Precautions Patient is COVID positive and interviewed via telephone. Patient is Nereida Smith from [place] and lives in an recreational vehicle with two step entrance and tub. 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 States able to complete ADL's on her own. Denies medical devices. Denied home health services, home care provider or dialysis. PCP - Becca Live NP in [place] [facility] - [facility]. Upon discharge, Jann Talbot, Brother [phone]/Cliff Talbot Zeny can be available to drive home and will assist with care, as needed. [facility] Advance Directive is filed with [facility], . MD GUILLEN - Scheduled for pacemaker placement Addendum: 01/14/25 at 1441 by RIOS DREW RN CM Amended: Links added.
[2025-01-14] MEDS ORDERED: MIDAZOLAM HCL 1 MG/ML 2ML VIAL ONE ×2 (14:13→14:41)
[2025-01-14] MEDS ORDERED: FENTanyl CITRate PF 50 MCG/1 ML 2ML VIAL ONE (14:13)
--- NOTE | 2025-01-14 14:21 | CONS ---
[facility] CARDIAC ELECTROPHYSIOLOGY CONSULTATION Date Patient Seen: Jan 14, 2025 Time of Visit: 14:19 Reason for Consultation: COMPLETE HEART BLOCK History of Present Illness: The patient was a 69-year-old woman who was a winter visitor from [place]. She has a history of a heart murmur and iron-deficiency anemia. Otherwise she has been generally healthy. She presented to [facility] with a 3-4 week history of dyspnea on exertion and PND as well as chest x-ray showing pulmonary vascular congestion. She was also found to be in third-degree AV block. She is not on any AV bienvenido blocking agents. She was sent to the [facility] for further workup and probable pacemaker implantation. EKG a [facility] showed underlying sinus rhythm with a rate of 72 beats per minute and complete AV block with a left bundle branch block escape rhythm. She had an echocardiogram showing normal LV systolic function with an ejection fraction of 55-60% and moderate aortic stenosis. Her pulmonary vascular congestion has resolved. Her complete heart block is persistent. Of note, she is COVID positive however she is asymptomatic. Past Medical History: As above Family History: Noncontributory Social History: Denies smoking or alcohol abuse Review of Systems: Negative and a 13 point review Physical Examination: The patient is in no acute distress. HEENT grossly within normal limits Neck without JVD Lungs clear Heart is bradycardic with a 3/6 systolic murmur at the left sternal border Abdomen was benign Extremities are without edema. Vital Signs (last 8hr) Date Time Temp Pulse Resp B/P (MAP) Pulse Ox O2 Delivery O2 Flow Rate FiO2 01/14/25 12:00 97.9 45 19 150/56 95 Room Air 01/14/25 08:00 96 Room Air* 0 21 01/14/25 07:43 97.7 43 20 161/67 95 Room Air Laboratory: [ ] Hematology Labs: Test 01/14/25 03:57 01/13/25 15:26 Range/Units White Blood Count 5.6 4.8-10.8 K/uL Red Blood Count 4.37 4.00-5.50 MIL/uL Hemoglobin 11.7 L 12.0-16.0 g/dL Hematocrit 38.3 36-48 % Mean Corpuscular Volume 87.6 79-99 fL Mean Corpuscular Hemoglobin 26.8 L 27.0-33.0 pg Mean Corpuscular Hemoglobin Concent 30.5 L 32.0-36.0 g/dL Red Cell Distribution Width 22.0 H 11.0-15.5 % Platelet Count 199 130-400 K/uL Mean Platelet Volume 9.4 7.5-10.5 fL Immature Granulocyte % (Auto) 0.4 0-1 % Neutrophils (%) (Auto) 70.8 40.0-77.0 % Lymphocytes (%) (Auto) 14.4 L 21.0-51.0 % Monocytes (%) (Auto) 11.0 3.0-13.0 % Eosinophils (%) (Auto) 3.0 0.0-8.0 % Basophils (%) (Auto) 0.4 0.0-5.0 % Neutrophils # (Auto) 4.0 1.8-7.7 K/uL Lymphocytes # (Auto) 0.8 L 1.0-4.8 K/uL Monocytes # (Auto) 0.6 0.1-1.0 K/uL Eosinophils # (Auto) 0.17 0.00-0.70 K/uL Basophils # (Auto) 0.02 0.00-0.20 K/uL Absolute Immature Granulocyte (auto 0.02 0-1 K/uL Nucleated Red Blood Cells 0.0 0.0-0.19 % Red Blood Cell Morphology See comments Chemistry Labs: Test 01/14/25 11:44 01/14/25 03:57 01/13/25 15:26 Range/Units Whole Blood Glucose 81 70-110 MG/DL Sodium Level 136 136-145 mmol/L Potassium Level 4.5 3.5-5.1 mmol/L Chloride Level 103 101-111 mmol/L Carbon Dioxide Level 32 21-32 mmol/L Blood Urea Nitrogen 9 7-18 mg/dL Creatinine 0.8 0.5-1.0 mg/dL Glomerular Filtration Rate Calc 79 >90 mL/min Random Glucose 103 70-105 mg/dL Lactic Acid Level 1.4 0.8-2.5 mmol/L Total Calcium 8.7 8.5-10.1 mg/dL Magnesium Level 2.10 1.80-2.40 mg/dL Total Bilirubin 1.3 H 0.2-1.0 mg/dL Direct Bilirubin 0.3 0.0-0.3 mg/dL Aspartate Amino Transf (AST/SGOT) 22 10-37 U/L Alanine Aminotransferase (ALT/SGPT) 21 12-78 U/L Alkaline Phosphatase 68 50-136 U/L Ammonia < 10 L 11-32 umol/L Total Creatine Kinase 60 21-232 U/L Troponin I High Sensitivity 93.5 *H 4-50 ng/L B-Type Natriuretic Peptide 760 H 0-100 pg/mL Total Protein 6.1 6.0-8.3 g/dL Albumin 3.0 L 3.5-5.0 g/dL Procalcitonin < 0.05 L 0.05-0.5 ng/mL Hemoglobin A1c 5.0 4.0-6.0 % Estimated Average Glucose (eAG) 97 70-126 mg/dL Coagulation Labs: Test 01/14/25 03:57 01/13/25 15:26 Range/Units Prothrombin Time 11.3 9.6-11.6 SEC Prothromb Time International Ratio 1.07 0.85-1.15 Activated Partial Thromboplast Time 28.5 26.3-35.5 SEC D-Dimer Quantitative (PE/DVT) 897 *H 0-500 ng/mL Assessment: This patient presents with symptomatic third-degree heart block with left bundle branch block escape rhythm. She is clinically stable and asymptomatic at rest. Plan: This patient will require permanent pacemaker implantation. This will be done later today. Thank you very much for this consultation. DAVION MILLER MD Jan 14, 2025 14:21
[2025-01-14] MEDS ORDERED: acetaMINOPHEN WITH coDEINE 1 TAB TAB PO PRN (17:00)
[2025-01-14] MEDS ORDERED: acetaMINOPHEN 500 MG TABLET PO PRN (17:00)
[2025-01-14] MEDS: acetaMINOPHEN WITH coDEINE 1 TAB TAB PO PRN (18:09)
[2025-01-15 04:05] LABS: BASOPHILS # (AUTO) 0.03 K/uL (0.00-0.20); BASOPHILS % (AUTO) 0.4 % (0.0-5.0); EOSINOPHILS # (AUTO) 0.09 K/uL (0.00-0.70); EOSINOPHILS % (AUTO) 1.3 % (0.0-8.0); HEMATOCRIT 40.1 % (36-48); IMMATURE GRANULOCYTE ABSOLUTE 0.03 K/uL (0-1); LYMPHOCYTES # (AUTO) 0.6 K/uL (1.0-4.8); LYMPHOCYTES % (AUTO) 8.2 % (21.0-51.0); MEAN CORPUSCULAR HEMOGLOBIN 26.8 pg (27.0-33.0); MEAN CORPUSCULAR HGB CONC 29.9 g/dL (32.0-36.0); MEAN CORPUSCULAR VOLUME 89.7 fL (79-99); MONOCYTES # (AUTO) 0.7 K/uL (0.1-1.0); MONOCYTES % (AUTO) 10.5 % (3.0-13.0); NEUTROPHILS # (AUTO) 5.3 K/uL (1.8-7.7); NEUTROPHILS % (AUTO) 79.2 % (40.0-77.0); PLATELET COUNT (AUTO) 190 K/uL (130-400); RED BLOOD CELL COUNT(AUTO) 4.47 MIL/uL (4.00-5.50); RED CELL DISTRIBUTION WIDTH 21.7 % (11.0-15.5); WHITE BLOOD COUNT (AUTO) 6.7 K/uL (4.8-10.8)
[2025-01-15 04:14] LABS: ALBUMIN 3.1 g/dL (3.5-5.0); BILIRUBIN,TOTAL 1.1 mg/dL (0.2-1.0); CREATININE 0.7 mg/dL (0.5-1.0); MAGNESIUM 2.1 mg/dL (1.80-2.40); POTASSIUM 4.3 mmol/L (3.5-5.1); TOTAL PROTEIN, SERUM 6.3 g/dL (6.0-8.3)
[2025-01-15 04:16] VITALS: BP 136/70; PULSE 64; RESP 18; TEMP 98.2
[2025-01-15 07:30] VITALS: O2SAT 95
[2025-01-15 08:00] VITALS: BP 149/74; PULSE 82; RESP 16; TEMP 97.9
--- NOTE | 2025-01-15 10:33 | HMCIMG ---
PORTABLE CHEST RADIOGRAPH INDICATION: s/p pacemaker COMPARISON: 01/13/2025 FINDINGS: carpentry professional leads overlie the field of view. Left sided dual chamber pacer and continuous leads are in adequate position. Heart remains slightly enlarged The pulmonary vascularity and kim appear normal. No abnormal pulmonary parenchymal opacity or consolidation identified. No significant pleural effusion noted. No pneumothorax detected. IMPRESSION: Stable mild cardiac enlargement without pulmonary vascular congestion or pneumothorax.
[2025-01-15 12:00] VITALS: BP 154/78; PULSE 77; RESP 19; TEMP 98
[2025-01-15] MEDS ORDERED: AMOX1TAB16 PO (12:20)
--- NOTE | 2025-01-15 12:56 | DS ---
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 Follow up with tape transferrer within seven days] PROCEDURES:[Pacemaker placement 01/14/2025] IMAGING: report attached to summary MICROBIOLOGY: report attached to summary ACTIVITY:[Independent] HOME MEDICATIONS: see [facility] NEW MEDICATIONS:[Augmentin 875 p.o. b.i.d. x5 days] EMERGENCY INSTRUCTIONS: The patient was instructed to present to the nearest Emergency departmentr or call 911 once their symptoms will return or worsen Astrophysics Professor(s): Patient is 69 years old female, [facility] from [facility] with a past medical history of iron-deficiency anemia, cardiac murmur (aortic stenosis ), obesity,, who came to emergency department [place], with a complaint of dyspnea on exertion for the past 3 to 4 weeks and paroxysmal nocturnal dyspnea as well as new onset CHF by chest x-ray in the emergency department. She was found to be in a third-degree AV block in emergency department and Cardiology was consulted. She reports have block dyspnea on exertion without associated chest pain or dizziness. Patient had two episodes of PND in the last week waking up 3 to 4 times with the dyspnea. Patient denies any chest discomfort, syncope, near syncope or dizziness. Patient denies any history of bradycardia. Patient stated that at home she takes only iron for her iron-deficiency anemia. Patient was transferred per Dr. Mirza from [facility] to [facility] for further evaluation of pacemaker with , and to consult for further evaluation of the complete heart block and CHF. Throughout the hospitalization patient was evaluated by EP and pacemaker was placed yesterday 01/14/2025. Today patient was re-evaluated there is no swelling to the site and no pain. EP cleared patient to be discharged home follow up outpatient within 10 days. Nurse practitioner also reach out to tape transferrer , and patient was also cleared from tape transferrer to be discharged follow up within one week. Patient denies any shortness of breath, chest pain, nausea, vomiting or any other discomfort. We also recommend that patient follow ups with the PCP in 2 to 3 days. Procedure(s): REVIEW OF SYSTEMS CONSTITUTIONAL: Denies fevers, chills, or night sweats. No unintentional weight loss reported. NEUROLOGICAL: Denies headache, amaurosis fugax, motor weakness, sensory deficit, vertigo/spinning sensation, gait abnormalities, or tremors. ENT: No hearing loss, otalgia, otorrhea, rhinitis, rhinorrhea, hoarseness, or sore throat. CARDIOVASCULAR: Denies any exertional angina, dyspnea on exertion, orthopnea, paroxysmal nocturnal dyspnea, palpitations, life-threatening arrhythmias, claudication. PULMONARY: Denies any , cough, phlegm/sputum, hemoptysis, pleuritic chest pain. Denies of breaths on exertion SLEEP: Denies morning headaches, daytime somnolence or napping. Denies diffic ulty falling asleep, staying asleep, waking from sleep. Denies knowledge of snoring. GASTROINTESTINAL: Denies any type of dysphagia to either liquids or solids. Denies nausea, vomiting, pyrosis, early satiety, abdominal pain, diarrhea, constipation, or changes in stool consistency or caliber. Denies coffee-ground emesis, hematemesis, hematochezia, or melanotic stools. GENITOURINARY: Denies frequency, urgency, nocturia, hematuria or incontinence (Storage/Irritative symptoms.) Low urinary stream, straining to void, urinary intermittency or hesitancy, splitting of the voiding stream, terminal dribbling. ENDOCRINOLOGIC: Denies polyuria, polydipsia, polyphagia or heat/cold into lerances. HEMATOLOGIC: Denies thrombophilia/previous clots, or coagulopathy/bleeding disorders. ONCOLOGIC: Denies personal history of malignancy. DERMATOLOGIC: Denies rashes or pruritus. PSYCHIATRIC: Denies any suicidal or homicidal ideation. Denies hallucinations. PHYSICAL EXAM GENERAL APPEARANCE: The patient is awake, alert, and oriented, in no acute cardiopulmonary distress. NEUROLOGICAL: Cranial nerves II-XII grossly intact. Motor is 5/5 in bilateral upper and lower extremities proximal to distal. No sensory deficits. HEENT: Face is symmetric. Pupils are equal and reactive. Extraocular movements are intact. NECK: Supple. No JVD. No thyromegaly. No submental, submandibular, pre- /postauricular, occipital or supraclavicular lymphadenopathy. CHEST: Normal chest expansion. No Telemetry. LUNGS: Absence of any rales, rhonchi or any wheezing. CARDIOVASCULAR: Regular. S1 and S2 normal. No appreciable rubs, murmurs or gallops. ABDOMEN: Soft, nontender, and nondistended. There is no rebound, voluntary guarding, or rigidity. : Deferred. No Lynch. EXTREMITIES: Non-edematous and not cyanotic. No clubbing. Good capillary refill. SKIN: No skin breakdown. Assessment/Plan: ASSESSMENT: [ Complete heart block POA New onset CHF exacerbation POA Systolic and diastolic CHF POA Left bundle branch block POA Acute pulmonary edema POA Aortic stenosis POA Cardiac murmur POA Dyspnea on exertion and paroxysmal nocturnal dyspnea POA Symptomatic bradycardia needing pacemaker POA COVID pneumonia positive on admission POA Obesity Iron-deficiency anemia Undiagnosed obstructive sleep apnea POA History of colonic polyps s/p polypectomy three years ago Right eye blepharoplasty s/p cholecystectomy History of face lift 2022 History of right ovarian lesion Rare social alcohol consumption POA ] PLAN: [ Admit to: PCCU 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 Fall Precautions. Well lighted room through the day and minimize interruptions through the night to prevent acute delirium. PULMONARY: Chest x-ray pending Supplemental 02 as needed BiPAP as necessary, for respiratory distress Titrate Fio2 to keep Spo2 > or = 90% DuoNebs and CPT as needed IS hourly while awake for pulmonary hygiene Out of bed to chair as tolerated VAP Bundle Maintain aspiration precautions at all times CARDIOVASCULAR: As per conversation between STUDENT LIFE ADVISOR and , patient may undergo a pacemaker placement today 01/14/2025 in the afternoon 2D echo pending Follow hemodynamics. Vital signs per facility protocol GI & NUTRITION: Continue nutritional support Aspirations precautions Prokinetic agents and laxatives as needed KIDNEYS & ELECTROLYTES: Strict monitoring of intake and output Daily weights Avoid nephrotoxic agents Monitor electrolytes and replace as needed Goal urine output of 30mL/hr or 0.5mL/kg/hr Medications to be dosed according to renal function. Avoid contrast if possible ENDOCRINE: Maintain blood glucose between 100-180 at all times. Insulin sliding scale for blood glucose management Hypoglycemia and hyperglycemia protocol in place INFECTIOUS DISEASE: Trend temperature, WBC and procalcitonin level Follow cultures, deescalate antibiotics as soon as possible. Panculture if new onset fever HEMATOLOGY & COAGULATION: Monitor H&H. Keep Hgb > 7 Transfuse 1 unit of PRBC for Hgb < 7 Transfuse 1 pack of platelets of platelets < 20, 000 Watch for any signs and symptoms of bleeding SKIN: Pressure ulcer prevention per facility protocol Specialty mattress as needed Treatment plan discussed with patient and family at the bedside Medications to be reconciled once obtained by patient and/or family and available to be reconciled in computer p.r.n. medication for pain nausea and vomiting Questions were answered We will continue to monitor the patient closely Contour Grinder for disposition Rehab: PT/OT GI: PPI DVT: SCD's Code Status: Full Resuscitation Disposition: TBD Prognosis: Guarded ] Home Medications: Reported Medications Ferrous Gluconate (Iron) 240 Mg (27 Mg Iron) Tablet, 240 MG PO AM, TAB 01/13/25 Time spent arranging discharge: 31-60 minutes ATTESTATION BY PHYSICIAN I have seen and examined the patient. I reviewed the documentation, medical decision making, and treatment plan as noted by the mid-level provider above. I agree with the findings and plan of care. Therese Guajardo MD, KATARZYNA B [facility] Jan 15, 2025 12:56
--- NOTE | 2025-01-15 15:07 | NUR ---
1500: GIVEN DISMISSAL INSTRUCTIONS, VERBALIZED UNDERSTANDING. REMOVED SALINE LOCK X 2 FROM RIGHT ARM, IV SITES WITHOUT REDNESS NOTED. REMOVED TELE PACK. PATIENT STATES SHE HAS NO ONE TO COME AND PICK HER UP. INFORMED CHARGE NURSE SILVANO AND ARGENTINA LARSEN RN. 1506: TAKEN TO ER LOBBY BY PCP SLADE TO WAIT ON UBER RIDE TO BE ARRANGED. PERSONAL BELONGINGS WITH PATIENT.
--- NOTE | 2025-01-15 18:01 | PN ---
[facility] CARDIOLOGY PROGRESS NOTE Date Patient Seen: Jan 15, 2025 Time of Visit: 17:58 Problem List: CHB COV19 ELEVATED TROPONIN Interval History: POD 1 from PPM Patient not examined due to COVID positivity/isolation status Chart review performed, discussion with primary team. Laboratory: [ ] Hematology Labs: Test 01/15/25 03:48 Range/Units White Blood Count 6.7 4.8-10.8 K/uL Red Blood Count 4.47 4.00-5.50 MIL/uL Hemoglobin 12.0 12.0-16.0 g/dL Hematocrit 40.1 36-48 % Mean Corpuscular Volume 89.7 79-99 fL Mean Corpuscular Hemoglobin 26.8 L 27.0-33.0 pg Mean Corpuscular Hemoglobin Concent 29.9 L 32.0-36.0 g/dL Red Cell Distribution Width 21.7 H 11.0-15.5 % Platelet Count 190 130-400 K/uL Mean Platelet Volume 9.8 7.5-10.5 fL Immature Granulocyte % (Auto) 0.4 0-1 % Neutrophils (%) (Auto) 79.2 H 40.0-77.0 % Lymphocytes (%) (Auto) 8.2 L 21.0-51.0 % Monocytes (%) (Auto) 10.5 3.0-13.0 % Eosinophils (%) (Auto) 1.3 0.0-8.0 % Basophils (%) (Auto) 0.4 0.0-5.0 % Neutrophils # (Auto) 5.3 1.8-7.7 K/uL Lymphocytes # (Auto) 0.6 L 1.0-4.8 K/uL Monocytes # (Auto) 0.7 0.1-1.0 K/uL Eosinophils # (Auto) 0.09 0.00-0.70 K/uL Basophils # (Auto) 0.03 0.00-0.20 K/uL Absolute Immature Granulocyte (auto 0.03 0-1 K/uL Nucleated Red Blood Cells 0.0 0.0-0.19 % White Cell Morphology Comment See comments Chemistry Labs: Test 01/15/25 05:07 01/15/25 03:48 01/14/25 03:57 Range/Units Whole Blood Glucose 98 70-110 MG/DL Sodium Level 135 L 136-145 mmol/L Potassium Level 4.3 3.5-5.1 mmol/L Chloride Level 102 101-111 mmol/L Carbon Dioxide Level 31 21-32 mmol/L Blood Urea Nitrogen 16 7-18 mg/dL Creatinine 0.7 0.5-1.0 mg/dL Glomerular Filtration Rate Calc 92 >90 mL/min Random Glucose 115 H 70-105 mg/dL Total Calcium 8.5 8.5-10.1 mg/dL Magnesium Level 2.10 1.80-2.40 mg/dL Total Bilirubin 1.1 H 0.2-1.0 mg/dL Aspartate Amino Transf (AST/SGOT) 21 10-37 U/L Alanine Aminotransferase (ALT/SGPT) 22 12-78 U/L Alkaline Phosphatase 67 50-136 U/L Total Protein 6.3 6.0-8.3 g/dL Albumin 3.1 L 3.5-5.0 g/dL Lactic Acid Level 1.4 0.8-2.5 mmol/L Direct Bilirubin 0.3 0.0-0.3 mg/dL Ammonia < 10 L 11-32 umol/L Total Creatine Kinase 60 21-232 U/L Troponin I High Sensitivity 93.5 *H 4-50 ng/L B-Type Natriuretic Peptide 760 H 0-100 pg/mL Procalcitonin < 0.05 L 0.05-0.5 ng/mL Coagulation Labs: Test 01/14/25 03:57 Range/Units Prothrombin Time 11.3 9.6-11.6 SEC Prothromb Time International Ratio 1.07 0.85-1.15 Activated Partial Thromboplast Time 28.5 26.3-35.5 SEC Diagnostics / Radiology: Conclusion The LVEF is 55-60%. Stage II diastolic dysfunction. The left atrium is severely dilated. Aortic valve is trileaflet, calcified with restricted opening. Moderate aortic stenosis, Vpk 4.0m/s, pk/mn gradients of 70/35 mmHg. STEPH by planimetry is 1.4 cm2. There is mitral annular calcification, predominently posteriorly. There is mild mitral valve regurgitation noted. DICTATED BY: ANGELLA DOMINIQUE DO DATE: 01/14/25 1048 Impression and Plan: Complete heart block, POD from PPM with Dr Mclaughlin COV19 positive Elevated troponin Cardiac murmur, underlying moderate aortic stenosis by echo this admission. R ecommend surveillance echo as outpatient in 1-2 years. Hypertension OK for d/c with outpatient follow up with Dr Mclaughlin post PPM placemen. ANGELLA DOMINIQUE DO Jan 15, 2025 18:01
== END 2025-01-15 15:07 | disposition home or self-care (01) | DRG 242 ==
LOC: 2AH 13:48
PROVIDERS: ADMIT Internal Medicine; ATTEND Internal Medicine
PROC: 02H63JZ Insertion of Pacemaker Lead into Right Atrium, Percutaneous Approach (ICD-10-PCS; principal; 2025-01-14)
PROC: 0JH606Z Insertion of Pacemaker, Dual Chamber into Chest Subcutaneous Tissue and Fascia, Open Approach (ICD-10-PCS; 2025-01-14)
PROC: 02HK3JZ Insertion of Pacemaker Lead into Right Ventricle, Percutaneous Approach (ICD-10-PCS; 2025-01-14)
DX: I44.2 Atrioventricular block, complete (principal); I50.43 Acute on chronic combined systolic (congestive) and diastolic (congestive) heart failure; U07.1 COVID-19; J12.82 Pneumonia due to coronavirus disease 2019; R00.1 Bradycardia, unspecified; I11.0 Hypertensive heart disease with heart failure; D50.9 Iron deficiency anemia, unspecified; R06.09 Other forms of dyspnea; I44.7 Left bundle-branch block, unspecified; I35.0 Nonrheumatic aortic (valve) stenosis; H02.31 Blepharochalasis right upper eyelid; G47.33 Obstructive sleep apnea (adult) (pediatric); R01.1 Cardiac murmur, unspecified; E66.9 Obesity, unspecified; I08.0 Rheumatic disorders of both mitral and aortic valves; Z95.0 Presence of cardiac pacemaker; Z90.49 Acquired absence of other specified parts of digestive tract; Z86.0100 Personal history of colon polyps, unspecified
CPT/HCPCS: 33208; 36415; 71045; 80048; 80053; 80076; 81001; 82140; 82550; 82948; 83036; 83605; 83735; 83880; 84145; 84484; 85025; 85378; 85610; 85730; 87086; 87635; 93306; 93356; 99156; 99157; C1785; G0378; J0696; J2250; J3010; J3370; J3490; Q9967; J0665